=== PATIENT | male | born 1955 | race Caucasian/White ===

== ENCOUNTER → 2017-02-06 | Outpatient (CLI) | payer BC ==
[~2017-02-06] MED LIST: ADVIN25050 INH; ALBU1AER9 INH; ALL300 PO; ENAL5TAB83 PO; FLNIN NAE; PRED-301 PO; SNG10 PO
--- NOTE | 2017-02-07 05:54 | PAP/PSG TECHNICIAN REPORT ---
[facility] [employer] Consultant Polysomnogram Report Study name: None Report date: 02/07/2017 Study date: 02/06/2017 Referring Physician: Elli Ma M.D. Name: PTARICK KULKARNI Interpreting Physician: Ana M Ma M.D. Date of : 1955 [employer] Consultant: ROSETTA Sinclair. Sex: Male Age: 61 StudyType: PSG Weight: 186 lbs Height: 61 years, Height 6' 0" Neck Circum:16.5 inches BMI: 25.22 Medications: Singulair 10mg, Dulera 200-5mcg/act, Prednisone 5mg, Allopurinol 300mg, Klonopin 1mg, Enalapril Maleate 20mg, Fluticasone Proionate 50mcg/act, Proair HFA 108 mcg/act, Nasal Saline Patient History Study started on room air with ETCO2 monitoring in room #5. 61 yr old male here tonight for a possible split night psg. He has a history of PLMS and takes Klonopin. He has not taken Klonopin since Tuesday [facility] 02/02/17. He took Ambien , Tuesday and Tuesday night in place of his Klonopin and tonight he was instructed to take no Ambien and no Klonopin. ESS=6/24. Neck circ=16.5inches. Parameters Monitored NPSG: E1-M2, E2-M1, Fp1-M2, Fp2-M1, F3-M2, F4-M2, F4-M1, C3-M2, C4-M2, C4-M1, O1-M2, O2-M2, O2-M1, T3-M2, T4-M1, P3-M2, P4-M1, CHIN1, CHIN2, HR, EKG, Legs, PFLOW, SNOR, FLOW, CFLOW, Tidal Volume, THOR, ABDO, SpO2, PLTH, CPRESS, ETCO2 Wave, ETCO2, pH Sleep Architecture Sleep Stages Time at Lights Off 10:00:16 PM STAGES Time (min.) TST (%) Time at Lights On 5:31:46 AM Wake 356.5 -- Total Recording Time (TRT) 451.50 min. N1 8.5 9 Total Sleep Period (TSP) 318.5 min. N2 63.5 67 Total Sleep Time (TST) 95.0min. N3 0.0 0 Awake Time 356.5 min. REM 23.0 24 Wake after Sleep Onset 223.5 min. Sleep Efficiency (SE) 21 % Sleep Onset Latency (KRISTINE) 133.0 min. Number of Stage 1 Shifts None Awakenings 10 Stage Changes 43 Number of REM periods 6 REM 23.0 24 REM Latency 250.5 min. NREM 72.0 76 Body Position Analysis Supine Right Left Side Prone Vertical Total Sleep Time (min.) 205.2 0.0 92.5 92.50 0.0 0.0 Total Sleep Time (%) 3% 0% 97% 97 0% N/A% Total Sleep Time REM (min.) 0.0 0.0 23.0 None 0.0 0.0 Total Sleep Time NREM (min.) 2.5 0.0 69.5 None 0.0 0.0 Intermittent Wake (min.) 202.7 58.6 95.2 None 0.0 0.0 Total Sleep Period (%) 27% None None None None None Arousals Myoclonus (PLM) * Events Count Index Events Count Index Spontaneous 6 4 Events Awake (PLMW) 130 21.9 Respiratory 0 0.0 Events Asleep w/ Arousal (PLMA) 1 0.6 PLM 1 1 Events Asleep w/o Arousal (PLMS) 0 0.0 Snoring 6 4 Total Asleep 1 0.6 Total 13 8 Total 131 17 Respiratory Analysis * CA OA MA CH H RERA Total Count 0 0 0 0 0 0 0 Index 0.0 0.0 0.0 0 0.0 0 0.0 Mean Duration 0.0 0.0 0.0 0.00 0.0 0.0 0.0 Longest Duration 0.0 0.0 0.0 0.00 0.0 0.0 0.0 Respiratory Event Summary Total Supine ~Supine Right Left Prone REM NREM Apneas Count 0 0 0 N/A 0 N/A 0 0 Index 0.0 0 0 N/A 0.0 N/A 0 0 Hypopneas (4% Desat) Count 0 0 0 N/A 0 N/A 0 0 Index 0.0 0.0 0 N/A 0.0 N/A 0.0 0.0 Apneas & All Hypopneas Count 0 0 0 N/A 0 N/A 0 0 Index 0.0 0 0 N/A 0 N/A 0.0 0.0 Respiratory Events (Control Room Helper+All Hyp+RERA) Count 0 0 0 N/A 0 N/A 0 0 Index 0.0 0 0 N/A 0.0 N/A 0.0 0.0 Respiratory Related Arousal Count 0 0 0 N/A 0 N/A 0 0 Index 0.0 0 0 N/A 0 N/A 0 0 Snoring Analysis Supine Right Left Prone REM NREM Total Snore duration 7.9 min Snores count 2 N/A 283 N/A 105 180 285 Snore mean duration 1.7 Sec Snores index 48 N/A 184 N/A 273.9 150.0 180.0 TST with snoring (%) 8.3% SpO2 Analysis Total REM NREM Awake <50% 0.0 min. 0.0 min. 0.0 min. 0.0 min. 51 - 60% 0.0 min. 0.0 min. 0.0 min. 0.0 min. 61 - 70% 0.0 min. 0.0 min. 0.0 min. 0.0 min. 71 - 80% 0.1 min. 0.0 min. 0.0 min. 0.1 min. 81 - 90% 6.9 min. 0.0 min. 2.6 min. 4.4 min. 91 - 100% 420.6 min. 23.0 min. 69.3 min. 328.3 min. Average 93 93 92 93 Minimum SpO2 80 91 90 80 Desaturation Event Index 1.2 0.0 0.0 1.5 # Desat. Events below 89% 2 N/A N/A 2 Time(%) with Saturation below 89% 0.1 0.0 0.0 0.1 Time(min.) with Saturation below 89% 0.4 0.0 0.0 0.4 Heart Rate Analysis End Tidal CO2 Analysis Min (bpm) Max (bpm) Average (bpm) TSP (mins) % of TSP Awake 33 118 60 Above 55 mmHg 0.0 0.0 NREM 53 71 57 50-55 mmHg 0.0 0.0 REM 55 67 59 45-50 mmHg 0.0 0.0 Overall 53 71 58 40-45 mmHg 49.3 51.8 35-40 mmHg 45.7 48.1 30-35 mmHg 0.1 0.1 Average ETCO2 0.0 Supplemental O2 Values Minimum O2 level: None Value Start Time End Time [employer] Consultant Comments Mr. Kulkarni was in the right, left and supine positions. No cardiac arrhythmia or PLM's noted. No bruxism noted. Snoring was noted and scored as a 2 on a scale of 1 through 5. (0=no snoring, 5=snoring loud enough to be heard through a closed door or down the tuttle way) He used the restroom 3 times during the night. He stated that he slept worse than usual. The final report will be interpreted and signed by a sleep physician. The completed physician report will then be placed in the patient medical record. Therapy (cm H2O) 0 TIB (min.) 451.5 TST (min.) 95.0 Sleep Onset (min.) 133.0 REM Onset From Sleep (min.) 250.5 Sleep Efficiency % 21 Wakefulness (%) 79 Wakefulness (min.) 356.5 NREM 1 (%) 9 NREM 1 (min.) 8.5 NREM 2 (%) 67 NREM 2 (min.) 63.5 NREM 3 (%) 0 NREM 3 (min.) 0.0 REM (%) 24 REM (min.) 23.0 # Arousals 13 Arousal Index 8 # Snore 285 Snore Index 180.0 AHI 0.0 AHI Supine 0 AHI Non-Supine 0 NREM AHI 0.0 REM AHI 0.0 RDI 0.0 # Obstructive Apnea 0 # Central Apnea 0 # Mixed Apnea 0 # Hypopneas 0 RERAs 0 Total Respiratory Events 0 Time Below SpO2 89% (min.) 0.0 Mean NREM SpO2 (%) 92 Mean REM SpO2 (%) 93 Mean Sleep SpO2 (%) 92 Min NREM SpO2 (%) 90 Min REM SpO2 (%) 91 Position Supine (min.) 205.2 Position Non-supine (min.) 92.5 LM Index Sleep 0.6 LM Index NREM 0.8 LM Index REM 0.0 Mean Heart Rate (bpm) 58 Min Heart Rate (bpm) 53
--- NOTE | 2017-02-14 09:40 | POLYSOMNOGRAPH REPORT ---
REFERRING PERSON: Dr. Kathrine Ma. LAST SAWYER: Quin Jimenez. Mr. Del Cid is a 61-year-old male sent for a possible split-night sleep study. He has a history of periodic limb movements of sleep and takes Klonopin for this. He has not taken Klonopin for several days, but has used Ambien on , Tuesday and Tuesday nights in place of his Klonopin in order to allow him to sleep prior to this PSG. His Meridian sleepiness scale score on the evening of this study is 6. BMI is 25.22. Following the technical and digital specifications of the [place] [employer] (AASM) a standard diagnostic polysomnogram was performed monitoring EEG, EOG, EMG (chin and leg deviations), oxygen saturation, body position, digital video, respiratory effort and airflow. The sleep Stage and event scoring was based on the AASM Manual for the Scoring of Sleep and Associated Events 2007 edition. Apneas are defined as a drop in the peak thermal sensor excursion by >90% of baseline for at least 10 seconds. Hypopneas were scored using the 4% oxygen desaturation rule (4A-[employer]) and a decrease in the nasal pressure excursions by >30% of baseline for at least 10 seconds. Respiratory effort-related arousal (RERA's) is defined as a sequence of breaths lasting at least 10 seconds characterized by increasing respiratory effort or flattening of the nasal pressure waveform leading to an arousal from sleep when the sequence of breaths does not meet criteria for an apnea or hypopnea. Apnea Hypopnea index (AHI) is defined as the number of apneas and hypopneas occurring in an hour of sleep. Respiratory disturbance index (RDI) is defined as the number of apneas, hypopneas, and RERA's occurring in an hour of sleep. Mr. Del Cid's total sleep period time was 318.5 minutes. Total sleep time was only 95 minutes. Sleep efficiency was 21%. Latency to sleep onset was prolonged at 133 minutes and wake after sleep onset was 223.5 minutes. Total non-REM sleep time was 72 minutes. He spent 9% of that time in N1 sleep, 67% in N2 sleep and no time in N3 sleep. REM latency was 250.5 minutes. Total REM sleep time was 23 minutes or 24% of total sleep time. There were 13 cortical arousals from sleep. 16 of these arousals were due to snoring, 6 were spontaneous, and 1 was due to periodic limb movements. There was only 1 periodic limb movement noted during sleep. Limb movement index was 0.6. Limb movement with arousal index was also 0.6. During this abbreviated sleep time, this patient had no central obstructive or mixed apneas. There were no hypopneas and no RERAs. Apnea-hypopnea index was 0; however, total sleep time was only 95 minutes. 285 snoring events were recorded. Total sleep time with snoring was 8.3%. Mean saturation was 93%. There were no desaturations less than 89% for only 0.4 minutes of recorded time. There was no cardiac ectopy noted on this study. Heart rates during sleep ranged from a low of 53 beats per minute to a high of 71 beats per minute. End tidal CO2s were recorded on this test. End tidal CO2s were between 40 and 45 mmHg for 51.8% of total sleep period time, between 35 and 40 mmHg for 48.1%, and between 30 and 35 mmHg for 0.1% of total sleep period time. IMPRESSION AND PLAN: A 61-year-old male with a history periodic limb movements, who had a suboptimal baseline sleep study due to only 95 minutes of total sleep time. During his sleep time, he did not have clinically significant periodic limb movements of sleep, parasomnia, nocturnal hypoxemia or sleep apnea. Clinical correlation is needed.
== END | disposition home or self-care (01) ==
LOC: C.NEUR 21:00
PROVIDERS: ATTEND Family Medicine
DX: R06.83 Snoring (principal); G47.61 Periodic limb movement disorder; G47.00 Insomnia, unspecified